=== PATIENT | male | born 1970 | race Caucasian/White ===

== ENCOUNTER → 2019-08-12 | Outpatient (CLI) | payer OTHER, SELFPAY ==
[2019-08-22 17:39] LABS: HSV 1 By PCR Negative (Negative)
[2019-08-22 21:12] LABS: HSV 2 By PCR Negative (Negative)
== END | disposition home or self-care (01) ==
PROVIDERS: Visit Provider Dermatology
DX: T14.8XXA Other injury of unspecified body region, initial encounter (principal); R20.2 Paresthesia of skin
CPT/HCPCS: 87070; 87075; 87076; 87205; 87529